=== PATIENT | female | born 1985 | race Caucasian/White ===

== ENCOUNTER 2018-07-17 21:17 | Inpatient (IN) | payer OTHER ==
[2018-07-17] MEDS ORDERED: MIDAZOLAM HCL 2 MG/2 ML INJ IV PRN (23:11)
[2018-07-17] MEDS ORDERED: PROMETHAZINE 25 MG/ML VIAL IV PRN (23:11)
[2018-07-17] MEDS ORDERED: Ringers Lactate 1,000 ML IV PRN (23:11)
[2018-07-17] MEDS ORDERED: MEPERIDINE HCL 25 MG/0.5 ML IV PRN (23:11)
[2018-07-17] MEDS ORDERED: CARBOPROST TROME 250 MCG/ML IM PRN (23:11)
[2018-07-17] MEDS ORDERED: METHYLERGONOVINE 0.2MG/ML AMP IM PRN (23:11)
[2018-07-17] MEDS ORDERED: PENICILLIN 5 MU in NA CHLORIDE 0.9% 100 ML IV ONE (23:11)
[2018-07-17] MEDS ORDERED: METHYLERGONOVINE 0.2MG/ML AMP IM ONE (23:23)
[2018-07-17] MEDS ORDERED: OXYTOCIN/LR 20 UNIT/1,000 ML BAG IV ONE (23:23)
[2018-07-17] MEDS ORDERED: Ringers Lactate 1,000 ML IV ONE (23:23)
[2018-07-17] MEDS ORDERED: CARBOPROST TROME 250 MCG/ML IM ONE (23:23)
[2018-07-17] MEDS ORDERED: LIDOCAINE 1% MPF 30 ML VIAL ONE (23:23)
[2018-07-17 23:44] LABS: RPR Titer ND
[2018-07-17] MEDS ORDERED: OXYTOCIN/LR 20 UNIT/1,000 ML BAG IV SCH (23:45)
[2018-07-17] MEDS ORDERED: Ringers Lactate 1,000 ML IV SCH (23:45)
[2018-07-17 23:50] LABS: Absolute Lymphocytes (CBC) 2.5 K/uL (0.7-4.9); Absolute Monocytes 0.7 K/uL (0.1-1.3); Absolute Neutrophil 5.8 K/uL (1.8-8.0); Basophils % 1.1 % (0-1.3); Eosinophils % 0.6 % (0-4.4); Hematocrit 34.6 % (36.0-45.0); Lymphocytes % 27.2 % (15.3-44.8); Monocytes % 7.5 % (3.3-12.3); RBC Red Blood Cell Count 4.09 M/uL (3.86-4.86)
[2018-07-17 23:52] LABS: Urine Appearance CLEAR; Urine Bilirubin NEGATIVE (NEG); Urine Blood 1+ (NEG); Urine Color YELLOW; Urine Glucose NEGATIVE (NEG); Urine Protein NEGATIVE (NEG); Urine Specific Gravity 1.015 (1.005-1.030); Urine Urobilinogen 0.2 mg/dL (0.2-1.0); Urine pH 7.5 (5.0-7.0)
[2018-07-17] MEDS ORDERED: MAGNESIUM SULF/STERILE WATER 1,000 ML IV ONE (23:58)
[2018-07-17] MEDS ORDERED: HYDRALAZINE HCL 20 MG/ML VIAL ONE (23:58)
[2018-07-17 23:59] LABS: Urine Microscopic Reflex ORDER UMIC
[2018-07-18 00:06] LABS: Barbiturates NEGATIVE (NEGATIVE); Cocaine NEGATIVE (NEGATIVE); Methadone NEGATIVE (NEGATIVE); Phencyclidine NEGATIVE (NEGATIVE); THC Cannibis NEGATIVE (NEGATIVE)
[2018-07-18 00:07] LABS: Benzodiazepines POSITIVE (NEGATIVE); METHAMPHETAM POSITIVE (NEGATIVE)
[2018-07-18 00:08] LABS: Opiates POSITIVE (NEGATIVE)
[2018-07-18] MEDS ORDERED: DOCUSATE NA/SENNA CONC 1 TAB PO PRN (00:26)
[2018-07-18] MEDS ORDERED: BISACODYL 10 MG RECTAL SUPP RECT PRN (00:26)
[2018-07-18] MEDS ORDERED: Oxycodone HCl/Acetaminophen 1 TAB TAB PO PRN ×2 (00:26)
[2018-07-18] MEDS ORDERED: DIPHENHYDRAMINE 25 MG TAB/CAP PO PRN (00:26)
[2018-07-18] MEDS ORDERED: IBUPROFEN 200 MG TAB PO ONE (00:51)
[2018-07-18] MEDS ORDERED: PHENOBARBITAL 32.4 MG TABLET PO SCH (01:00)
[2018-07-18] MEDS ORDERED: OXYTOCIN/LR 20 UNIT/1,000 ML BAG IV SCH (01:00)
[2018-07-18 02:12] LABS: Urine Bacteria 20-50 /HPF (<20); Urine Culture Reflex Order REFLEXED; Urine RBC <5 /HPF (NONE SEEN)
[2018-07-18 02:39] VITALS: BMI 23.3
[2018-07-18] MEDS ORDERED: IBUPROFEN 400 MG TAB PO PRN (02:48)
--- NOTE | 2018-07-18 06:36 | OP ---
Surgeon: Tian Estevez MD A 33-year-old 5, para 4, drop-in patient from [place], admits to Xanax use during the pregn tha. Urinary drug screen positive for benzodiazepines, positive for methamphetamines, positive for opiates. CPS will be notified. The patient was admitted. She complained of contractions, was noted to be 3.5 to 4 cm but did not seem to be in active labor according the nurses and after a period of observation, she was getting ready to be discharged. However patient complained of pain, she was isra cked, noted to be 6 cm. Obviously she was admitted at that point, IV was started. Blood pressures w ere elevated 176/100, a couple even little bit higher than that. A 5 mg of Apresoline was given IV. The patient states that her last she had pre-eclampsia even though it is her fourth pregnan cy. She was started on 4 g loading dose of magnesium sulfate, however, probably not more than a gram or so was administered. The patient delivered precipitously but controlled of a very small female, Apgars 9 and 9, very agitated type baby cry. We are getting the weight at this point but it looks to be 5 pounds or less. It is though crying quite well. No episiotomy. No lacerations. Gabriellee brandon gayle of the placenta, which was inspected. We will keep it for possible pathologic examination. Bl ood loss was about 300 to 350 cc. The patient tolerated all procedures well. We will give the patie nt either Motrin p.o. or Percocet as she says that tramadol causes seizures. She has no other drug a llergies that she relates. We will perform the rest of the drop-in lab. I have ordered the magnesiu m sulfate to be stopped as she says her arm and hand was burning where the IV was running and the mag nesium sulfate was going. She has had no signs of allergic reactions. We will put her on p.o. pheno barbital. She really has no reflex problems and she does not have edema. Urine was not available as it was sent down and the dipstick is not available. However, we will take precautionary measures si nce she does give the history of preeclampsia with her last . Final Diagnoses: Term intrauterine 37 weeks 5 days, according the patient's estimates. Pr ecipitous but controlled vaginal delivery. Positive urinary drug screen for benzodiazepines, methamphetamine and opiates. CPS will b e notified. ABDULLAHI/DENILSON Voice ID: [id number] Report ID: [id number]
--- NOTE | 2018-07-18 09:00 | PREOPHP ---
Date of Admission: 07/17/2018 33-year-old 5, para 4, comes in, from [place]. She states she has been here 2 w eeks but has not sought care. Gives a history that she had pre-eclampsia with her fourth pr nora. Says that she has been seen in [place], but not often and not recently. Came to our faci lity to be evaluated. That time, was not thought to be in labor by the nurses. She was 3.5 to 4 cm. During the period of observation; however, patient became very uncomfortable. Was checked, was not ed to be 6 cm. She was admitted and subsequently checked and within 8 and 9 cm. FHTs are normal. T he patient does have an elevated blood pressure of 176/100. She has no idea about her beta strep sta tus and she has agreed to receive penicillin. This is going right now. On initial exam, she is 8.5 to 9 cm, bulging membranes. Rupture of membranes, clear fluid. We will start Gleason catheter. Get h er urinary drug screen as patient admits to taking Xanax during her and we will see what el se should not have been taken. 4 g of magnesium sulfate has been ordered. Anticipate delivery relat ively soon. The patient states that she is allergic to tramadol and has seizures when she gets trama dol, but she has had Stadol in the past possibly 2 years ago or more and she has no problems. Howeve r, obviously we are little bit nervous about giving her any analgesic at this point. Family history according to patient is noncontributory. She has had an appendectomy but no other surgeries. She is all by herself so she has no one with her. This is all a very suspicious social situation. Nonethe less, she is imminently going to be delivered, and then we will let Dedicated Truck Driver get involved. ABDULLAHI/DENILSON Voice ID: [id number]
[2018-07-18 13:06] VITALS: BP 154/100; TEMP 99.7
[2018-07-18] MEDS ORDERED: PHENOBARBITAL 32.4 MG TABLET PO ONE ×3 (16:23→18:00)
--- NOTE | 2018-07-18 18:27 | DS ---
Date of Discharge: 07/18/2018 Hospital Course: A 33-year-old multiparous female, 5, para 4, supposedly at 37 weeks 5 days, but not a reliable historian. The patient came into our institution for labor assessment, was watch ed for 2-3 hours, and then was being prepared to be sent home, but then checked and noted she had jazmin e from 3-1/2 to 6 cm. Was admitted. Drug screen proved positive for benzodiazepine, opiates, and me thamphetamine. CPS will be notified. She also has noted to have elevated blood pressures. Was give n Apresoline 5 mg IV during the labor. Magnesium sulfate was started, but before it was completely f inished, patient precipitously delivered, a 4-pound 1-ounce male . Previously identified Ninfa delgado was female, but this is a male infant. Apgars 9 and 9. No episiotomy. No laceration. Schultze delivery of the placenta. Estimated blood loss 300-350 cc. The patient was also given 1 dose of pen icillin as she was not aware of her beta strep status. afebrile, ambulating and voiding. Lochia is normal. Blood pressures have moderated. She was started on phenobarbital, which will pro bably continue during the time she is here in the hospital, but I do not really think she has preecla mpsia, although she said she had pre-eclampsia with her last delivery. Her reflexes are normal. She has no swelling of any significance. We will observe the patient probably until tomorrow and then d epend upon what Pediatrics says, possibly dismiss the patient at that time. The patient has no obvio support system, nobody was with her during her labor and nobody has appeared yet. When asked she says she would probably will stay in this area, but may go back to [place]. She is Rh positive. S he says she has had her Tdap to the nurses this morning, though she says she does not remember if she had her Tdap immunization or not. Full post instructions given. Urine protein just became a vailable and was negative, so I definitely do not think the patient has preeclampsia and we will stop phenobarbital. I will not give her any opiates on dismissal as obviously she has a problem with mikal t. Final Diagnoses: Intrauterine gestation, 37 weeks 5 days, according to self-assessment on the patien t. Positive drug screen. Vaginal delivery. Tdap offered. CPS and other support services will be notified. ABDULLAHI/DENILSON Voice ID: [id number] Report ID: [id number]
--- NOTE | 2018-07-18 18:33 | DS ---
Date of Discharge: 07/18/2018 Hospital Course: Blood pressures are still somewhat elevated, even though we had stopped the phenoba rbital. The patient is now going to be dismissed after she talks with CPS because the baby is being transferred. Dr. Kent has made that decision. I think it is more prudent to keep the patient on phenobarbital for 2-3 days. She is to follow up with me in my office on Sunday. Whether or not she will do that remains to be seen. Final Diagnoses: Drop-in with minimal care, 37 weeks 5 days, best estimates. Three positiv e tests for on drug screen. Vaginal delivery, 4-pound 1-ounce male. Rh positive. HIV test negative . Follow up in my office. CPS involved. ABDULLAHI/DENILSON Voice ID: [id number] Report ID: [id number]
[2018-07-18 21:58] LABS: RPR (Rapid Plasma Reagin) NON-REACT (NON-REACT)
[2018-07-23 04:15] LABS: HBsAG Nonreactive (Nonreactive)
== END 2018-07-18 17:00 | disposition home or self-care (01) | DRG 807 ==
LOC: L&D 21:17 → 2ND-WC 23:09
PROVIDERS: ADMIT Specialist; ATTEND Specialist
PROC: 10E0XZZ Delivery of Products of Conception, External Approach (ICD-10-PCS; principal; 2018-07-18)
DX: O99.324 Drug use complicating childbirth (principal); Z37.0 Single live birth; F11.90 Opioid use, unspecified, uncomplicated; F15.90 Other stimulant use, unspecified, uncomplicated; F19.90 Other psychoactive substance use, unspecified, uncomplicated; Z3A.37 37 weeks gestation of pregnancy
CPT/HCPCS: 36415; 80307; 81003; 81015; 85025; 86592; 86850; 86900; 86901; 87077; 87086; 87088; 87186; 87340; 88307; 99218; G0433; J0360; J2175; J2210; J2590; J3475

== ENCOUNTER 2019-09-21 01:45 | Inpatient (IN) | payer OTHER ==
[2019-09-21] MEDS ORDERED: ACETAMINOPHEN 500 MG TAB ONE (02:39)
[2019-09-21 03:35] LABS: Urine Blood NEGATIVE (NEG); Urine Glucose NEGATIVE (NEG); Urine Protein NEGATIVE (NEG); Urine pH 8.5 (5.0-7.0)
[2019-09-21] MEDS ORDERED: FENTANYL CITR 100 MCG/2 ML ONE (04:34)
[2019-09-21] MEDS ORDERED: CEFTRIAXONE/SWI 1gm 2 GM/20 ML SYR ONE (04:34)
[2019-09-21] MEDS ORDERED: NA CHLORIDE 0.9% 2,000 ML ONE (04:34)
[2019-09-21] MEDS ORDERED: ONDANSETRON 4 MG/2 ML VIAL ONE (04:36)
--- NOTE | 2019-09-21 04:45 | ER ---
Nurse's Notes [facility] Name: Marcella Argueta Age: 34 yrs Sex: Female : 1985 Arrival Date: 09/21/2019 Time: 01:58 Bed 24 Private MD: Diagnosis: Fever, unspecified;Acute tubulo-interstitial nephritis;Weakness;Elevated white blood cell count;Anemia, unspecified;Hypokalemia Presentation: 09/20 02:24 Chief complaint: Patient states: Right kidney pain that began yesterday; States lp1 diagnosed with kidney infection about 2 weeks ago but did not finish antibiotics; States hx of kidney stones; States fever at home of 104, has not taken any medication. Coronavirus screen: Proceed with normal triage. Ebola Screen: No symptoms or risks identified at this time. Initial Sepsis Screen: Does the patient meet any 2 criteria? Temp <36.0*C (96.8*F)) or > 38.3*C (100.9*F). HR > 90 bpm. Yes Does the patient have a suspected source of infection? Yes: Other: unknown. Risk Assessment: Do you want to hurt yourself or someone else? Patient reports no desire to harm self or others. Onset of symptoms was September 21, 2019. 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 - Social history:: Smoking status: Patient denies any tobacco usage or history of. - Family history:: not pertinent. Screenin:28 Abuse screen: Denies threats or abuse. Denies injuries from another. Nutritional lp1 screening: No deficits noted. Tuberculosis screening: No symptoms or risk factors identified. Fall Risk None identified. Assessment: 03:00 General: Appears in no apparent distress. uncomfortable, Behavior is calm, cooperative, vc appropriate for age. Pain: Complains of pain in left mid back and right low back and right mid back. Neuro: Level of Consciousness is awake, alert, obeys commands. Cardiovascular: Capillary refill < 3 seconds Patient's skin is warm and dry. Respiratory: Respiratory effort is even, unlabored, Respiratory pattern is regular, symmetrical. : Urine is clear, Reports pain flank(s). Derm: burn to right lower medial calf. 04:00 Reassessment: Patient appears in no apparent distress at this time. Patient and/or vc family updated on plan of care and expected duration. Pain level reassessed. Patient is alert, oriented x 3, equal unlabored respirations, skin warm/dry/pink. 05:43 Reassessment: Patient appears in no apparent distress at this time. Patient aware of lp1 admission and ER Hold status. 05:47 Reassessment: Dr. Slaughter at bedside to discuss care with patient. lp1 Vital Signs: 02:24 BP 120 / 76; Pulse 133; Resp 18; Temp 103.2(O); Pulse Ox 100% on R/A; Weight 61.23 kg lp1 (R); Height 5 ft. 5 in. (165.10 cm); Pain 9/10; 05:42 BP 103 / 60; Pulse 99; Resp 18; Temp 98.9(O); Pulse Ox 99% on R/A; lp1 02:24 Body Mass Index 22.46 (61.23 kg, 165.10 cm) lp1 ED Course: 01:58 Patient arrived in ED. cl3 02:06 Earl Granda MD is Attending Physician. luis 02:27 Triage completed. lp1 02:27 Arm band placed on. lp1 03:04 Aviva Anton RN is Primary Nurse. vc 03:37 CT Stone Protocol In Process Unspecified. EDMS 03:54 Chest Single View XRAY In Process Unspecified. EDMS 04:41 Tawanda Slaughter MD is Hospitalizing Provider. [facility] 05:00 Report received from MAIRA Chicas. lp1 05:29 Patient has correct armband on for positive identification. lp1 05:29 No provider procedures requiring assistance completed. Patient admitted, IV remains in lp1 place. 20g IV to left FA intact. Administered Medications: 02:32 Drug: Tylenol 1000 mg Route: PO; lp1 04:30 Drug: NS 0.9% 1000 ml Route: IV; Rate: 1 bolus; Site: left forearm; vc 04:30 Drug: NS 0.9% 1000 ml Route: IV; Rate: 1 bolus; Site: left forearm; vc 04:30 Drug: Rocephin 2 grams Route: IV; Rate: per protocol; Site: left forearm; vc 04:30 Drug: fentaNYL (PF) 25 mcg Route: IVP; Site: left forearm; vc 04:30 Drug: Zofran (Ondansetron) 4 mg Route: IVP; Site: left forearm; vc Outcome: 04:44 Decision to Hospitalize by Provider. luis 05:29 Condition: stable lp1 05:29 Instructed on the need for admit. 07:27 Admitted to ER Hold. Please see [facility] for further documentation. lp1 14:28 Patient left the ED. hb Signatures: Dispatcher [employer] Earl Ruvalcaba MD MD cha Pena, Laura, RN RN lp1 Radha Gomez RN RN hb Lewis, Charde cl3 Aviva Anton RN RN vc
--- NOTE | 2019-09-21 04:45 | EDPHYS ---
Physician Documentation [facility] Name: Marcella Argueta Age: 34 yrs Sex: Female : 1985 Arrival Date: 09/21/2019 Time: 01:58 Bed 24 Private MD: Earl Ralph HPI: 09/20 02:59 This 34 yrs old Female presents to ER via Ambulatory with complaints of luis Kidney Pain. 02:59 The patient presents with abdominal pain in the upper abdomen, in the lower abdomen. luis Onset: The symptoms/episode began/occurred 3 day(s) ago. The patient complains of pain in the right mid back and right low back. The pain does not radiate. Onset: The symptoms/episode began/occurred 3 day(s) ago. Modifying factors: The symptoms are alleviated by nothing. the symptoms are aggravated by nothing. The symptoms do not radiate. Associated signs and symptoms: Pertinent positives: dysuria, fever, urinary frequency, nausea. Modifying factors: The symptoms are alleviated by remaining still, the symptoms are aggravated by jumping, movement, pressure, walking. 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 - Social history:: Smoking status: Patient denies any tobacco usage or history of. - Family history:: not pertinent. ROS: 02:59 Constitutional: Negative for fever, chills, and weight loss, Eyes: Negative for injury, luis pain, redness, and discharge, ENT: Negative for injury, pain, and discharge, Neck: Negative for injury, pain, and swelling, Respiratory: Negative for shortness of breath, cough, wheezing, and pleuritic chest pain, : Negative for injury, bleeding, discharge, and swelling, MS/Extremity: Negative for injury and deformity, Skin: Negative for injury, rash, and discoloration, Neuro: Negative for headache, weakness, numbness, tingling, and seizure. 02:59 Constitutional: Positive for fatigue, fever, malaise. 02:59 Cardiovascular: Positive for palpitations. 02:59 Abdomen/GI: Positive for abdominal pain, nausea and vomiting. 02:59 Back: Positive for flank pain, bilaterally. Exam: 03:03 Head/Face: Normocephalic, atraumatic. Eyes: Pupils equal round and reactive to light, luis extra-ocular motions intact. Lids and lashes normal. Conjunctiva and sclera are non-icteric and not injected. Cornea within normal limits. Periorbital areas with no swelling, redness, or edema. ENT: Nares patent. No nasal discharge, no septal abnormalities noted. Tympanic membranes are normal and external auditory canals are clear. Oropharynx with no redness, swelling, or masses, exudates, or evidence of obstruction, uvula midline. Mucous membranes moist. Neck: Trachea midline, no thyromegaly or masses palpated, and no cervical lymphadenopathy. Supple, full range of motion without nuchal rigidity, or vertebral point tenderness. No Meningismus. Chest/axilla: Normal chest wall appearance and motion. Nontender with no deformity. No lesions are appreciated. Respiratory: Lungs have equal breath sounds bilaterally, clear to auscultation and percussion. No rales, rhonchi or wheezes noted. No increased work of breathing, no retractions or nasal flaring. Skin: Warm, dry with normal turgor. Normal color with no rashes, no lesions, and no evidence of cellulitis. MS/ Extremity: Pulses equal, no cyanosis. Neurovascular intact. Full, normal range of motion. Neuro: Awake and alert, GCS 15, oriented to person, place, time, and situation. Cranial nerves II-XII grossly intact. Motor strength 5/5 in all extremities. Sensory grossly intact. Cerebellar exam normal. Normal gait. 03:03 Constitutional: The patient appears febrile. 03:03 Cardiovascular: Rate: tachycardic, Rhythm: regular, Pulses: Pulses are 4+ in bilateral radial, brachial, femoral, popliteal, posterior tibial and and dorsalis pedis arteries.. Heart sounds: normal, Edema: is not appreciated, JVD: is not appreciated. 03:03 Back: pain, that is mild, that is moderate, of the left mid back and right mid back, ROM is normal, normal spinal alignment noted, CVA tenderness, that is moderate, is noted bilaterally, muscle spasm, is not present. Vital Signs: 02:24 BP 120 / 76; Pulse 133; Resp 18; Temp 103.2(O); Pulse Ox 100% on R/A; Weight 61.23 kg lp1 (R); Height 5 ft. 5 in. (165.10 cm); Pain 9/10; 05:42 BP 103 / 60; Pulse 99; Resp 18; Temp 98.9(O); Pulse Ox 99% on R/A; lp1 02:24 Body Mass Index 22.46 (61.23 kg, 165.10 cm) lp1 MDM: 02:31 Patient medically screened. luis 03:04 Differential diagnosis: nephrolithiasis, pyelonephritis, UTI, diverticulitis, ruptured luis AAA, viral Infection, bacterial infection, gastroenteritis, cholecystitis, Cholelithiasis, gastritis. Data reviewed: vital signs, nurses notes, lab test result(s), radiologic studies, CT scan, plain films. 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 Test interpretation: by ED physician or midlevel provider:. Counseling: I had a detailed discussion with the patient and/or guardian regarding: the historical points, exam findings, and any diagnostic results supporting the discharge/admit diagnosis, lab results, radiology results, the need for further work-up and treatment in the hospital. 04:39 Medication response: Zofran partially relieved the patient's nausea. Response to luis treatment: the patient's symptoms have markedly improved after treatment. ED course: right flank pain, high fever , ct stone no stone, mild right perinephric stranding, wall of right ureter thickened. 09/20 02:55 Order name: Basic Metabolic Panel; Complete Time: 05:12 [facility] 09/20 02:55 Order name: CBC with Diff [facility] 09/20 02:55 Order name: Hepatic Function; Complete Time: 05:12 [facility] 09/20 02:55 Order name: Lipase; Complete Time: 05:12 [facility] 09/20 02:55 Order name: Urine Culture [facility] 09/20 02:56 Order name: Lactate; Complete Time: 05:12 [facility] 09/20 02:56 Order name: Procalcitonin [facility] 09/20 02:56 Order name: Blood Culture Adult (2) [facility] 09/20 03:20 Order name: Urine Dipstick--Ancillary (enter results) [place] 09/20 03:20 Order name: Urine --Ancillary (enter results); Complete Time: 03:41 [place] 09/20 05:39 Order name: Manual Differential EDTN 09/20 06:49 Order name: Urinalysis EDTN 09/20 06:49 Order name: CBC with Automated Diff EDMS 09/20 06:49 Order name: CBC with Automated Diff EDMS 09/20 02:56 Order name: CT Stone Protocol [facility] 09/20 03:05 Order name: Chest Single View XRAY [facility] 09/20 06:49 Order name: Comprehensive Metabolic Panel EDMS 09/20 06:49 Order name: Comprehensive Metabolic Panel EDMS 09/20 06:49 Order name: Lactate EDMS 09/20 06:49 Order name: Lactate EDMS 09/20 06:49 Order name: Magnesium EDMS 09/20 06:49 Order name: Magnesium EDMS 09/20 06:49 Order name: Phosphorus EDMS 09/20 06:49 Order name: Phosphorus EDMS 09/20 06:49 Order name: Procalcitonin EDTN 09/20 06:49 Order name: Procalcitonin EDMS 09/20 06:49 Order name: Protime (+INR) EDMS 09/20 06:49 Order name: Protime (+INR) EDMS 09/20 06:49 Order name: PTT, Activated Partial Thromb EDMS 09/20 06:49 Order name: PTT, Activated Partial Thromb EDTN 09/20 02:55 Order name: IV Saline Lock; Complete Time: 04:56 [facility] 09/20 02:55 Order name: Labs collected and sent; Complete Time: 04:56 [facility] 09/20 02:55 Order name: Urine Dipstick-Ancillary (obtain specimen); Complete Time: 04:56 [facility] 09/20 02:55 Order name: Urine Test (obtain specimen); Complete Time: 04:56 [facility] 09/20 06:49 Order name: NPO EDMS Administered Medications: 02:32 Drug: Tylenol 1000 mg Route: PO; lp1 04:30 Drug: NS 0.9% 1000 ml Route: IV; Rate: 1 bolus; Site: left forearm; vc 04:30 Drug: NS 0.9% 1000 ml Route: IV; Rate: 1 bolus; Site: left forearm; vc 04:30 Drug: Rocephin 2 grams Route: IV; Rate: per protocol; Site: left forearm; vc 04:30 Drug: fentaNYL (PF) 25 mcg Route: IVP; Site: left forearm; vc 04:30 Drug: Zofran (Ondansetron) 4 mg Route: IVP; Site: left forearm; vc Disposition: 09/21/19 04:44 Hospitalization ordered by Tawanda Slaughter for Inpatient Admission. Preliminary diagnosis are Fever, unspecified, Acute tubulo-interstitial nephritis, Weakness, Elevated white blood cell count, Anemia, unspecified, Hypokalemia. - Bed requested for Telemetry/MedSurg (Inpatient). - Status is Inpatient Admission. hb - Condition is Fair. - Problem is new. - Symptoms have improved. Signatures: Dispatcher [employer] EDMS Maryam Lyman RN RN mw Woody, Diana, RN RN dw Anderson, Corey, MD MD cha Pena, Laura, RN RN lp1 Radha Gomez RN RN hb Calcote, Vanessa RN RN vc Corrections: (The following items were deleted from the chart) 04:57 04:44 Hospitalization Ordered by Tawanda Slaughter MD for Inpatient Admission. Preliminary diagnosis is Fever, unspecified; Acute tubulo-interstitial nephritis; Weakness. Bed requested for Telemetry/MedSurg (Inpatient). Status is Inpatient Admission. Condition is Fair. Problem is new. Symptoms have improved. [facility] 05:14 04:57 09/21/2019 04:44 Hospitalization Ordered by Tawanda Slaughter MD for Inpatient [facility] Admission. Preliminary diagnosis is Fever, unspecified; Acute tubulo-interstitial nephritis; Weakness. Bed requested for [facility] ER HOLD. Status is Inpatient Admission. Condition is Fair. Problem is new. Symptoms have improved. 12:54 05:14 09/21/2019 04:44 Hospitalization Ordered by Tawanda Slaughter MD for Inpatient Admission. Preliminary diagnosis is Fever, unspecified; Acute tubulo-interstitial nephritis; Weakness; Elevated white blood cell count; Anemia, unspecified; Hypokalemia. Bed requested for [facility] ER HOLD. Status is Inpatient Admission. Condition is Fair. Problem is new. Symptoms have improved. [facility] 12:54 12:54 09/21/2019 04:44 Hospitalization Ordered by Tawanda Slaughter MD for Inpatient Admission. Preliminary diagnosis is Fever, unspecified; Acute tubulo-interstitial nephritis; Weakness; Elevated white blood cell count; Anemia, unspecified; Hypokalemia. Bed requested for Telemetry/MedSurg (Inpatient). Status is Inpatient Admission. Condition is Fair. Problem is new. Symptoms have improved. heidi 14:28 12:54 09/21/2019 04:44 Hospitalization Ordered by Tawanda Slaughter MD for Inpatient hb Admission. Preliminary diagnosis is Fever, unspecified; Acute tubulo-interstitial nephritis; Weakness; Elevated white blood cell count; Anemia, unspecified; Hypokalemia. Bed requested for Telemetry/MedSurg (Inpatient). Status is Inpatient Admission. Condition is Fair. Problem is new. Symptoms have improved. dw
[2019-09-21 04:49] LABS: Absolute Lymphocytes (CBC) 1.8 K/uL (0.7-4.9); Basophils % 0.5 % (0-1.3); Hematocrit 30.3 % (36.0-45.0); Lymphocytes % 8.2 % (15.3-44.8); MPV 7.2 fL (7.6-11.3); RBC Red Blood Cell Count 3.66 M/uL (3.86-4.86)
[2019-09-21 05:09] LABS: ALT/SGPT 14 U/L (12-78); AST/SGOT 10 U/L (15-37); Albumin 2.8 g/dL (3.4-5.0); Alkaline Phosphatase 93 U/L (45-117); BUN Blood Urea Nitrogen 13 mg/dL (7-18); Bicarbonate 24 mmol/L (21-32); Bilirubin Direct < 0.1 mg/dL (0-0.2); Bilirubin Total 0.2 mg/dL (0.2-1.0); Glucose Level 104 mg/dL (74-106); Lipase 81 U/L (73-393); Potassium 3.3 mmol/L (3.5-5.1); Protein, Total 6.9 g/dL (6.4-8.2); Sodium Level 136 mmol/L (136-145)
[2019-09-21 05:39] LABS: Blood Morphology Comment NOT SEEN (NOT SEEN); Platelet Estimate INCR
[2019-09-21] MEDS ORDERED: POTASSIUM 25 MEQ EFFERV TAB ONE (05:39)
[2019-09-21] MEDS ORDERED: ACETAMINOPHEN 500 MG TAB PO PRN (06:45)
[2019-09-21] MEDS ORDERED: ONDANSETRON 4 MG/2 ML VIAL IV PRN (06:45)
[2019-09-21] MEDS ORDERED: ALPRAZOLAM 0.25 MG TABLET PO PRN (06:45)
[2019-09-21] MEDS: NA CHLORIDE 0.9% 1,000 ML IV SCH ×2 (07:00→20:19)
--- NOTE | 2019-09-21 08:20 | P.HP ---
Certification for Inpatient Patient admitted to: Inpatient With expected LOS: >2 Midnights Patient will require the following post-hospital care: None Practitioner: I am a practitioner with admitting privileges, knowledge of patient current condition, hospital course, and medical plan of care. Services: Services provided to patient in accordance with Admission requirements found in Title 42 Section 412.3 of the Code of Federal Regulations Patient History Date of Service: 09/21/19 Reason for admission: Pyelonephritis History of Present Illness: Patient is a 34-year-old female who comes into the emergency room with a temp of a 103.8. Patient has been having some flank tenderness. Patient came into the emergency room for further evaluation. In the emergency room patient was found have pyelonephritis. Cultures are pending at this time. Patient denies a history of UTI. Patient is lethargic, and patient just got pain medication. She keeps falling asleep during our conversation. She tells me she still having some tenderness but feels a little bit better since getting IV fluids and antibiotics in the ER. She will be admitted to the hospital for further evaluation. Allergies tramadol Allergy (Verified 07/18/18 01:46) Shortness of breath Home medications list reviewed: Yes Home Medications: NK [No Home Meds] 07/18/18 - Past Medical/Surgical History Diabetic: No -: Hx: preeclampsia and gestational diabetes with all pregnancies -: x4 -: Appendectomy 2010 - Family History Father Family History: Reviewed- Non-Contributory - Social History Smoking Status: Unknown if ever smoked Alcohol use: No CD- Drugs: No Caffeine use: No Review of Systems 10-point ROS is otherwise unremarkable Physical Examination - Vital Signs Temperature: 98 F Blood Pressure: 120/70 Pulse: 88 Respirations: 18 Pulse Ox (%): 96 - Physical Exam General: Alert, In no apparent distress, Oriented x3 HEENT: Atraumatic, PERRLA, Mucous membr. moist/pink, EOMI, Sclerae nonicteric Neck: Supple, 2+ carotid pulse no bruit, No LAD, Without JVD or thyroid abnormality Respiratory: Clear to auscultation bilaterally, Normal air movement Cardiovascular: Regular rate/rhythm, Normal S1 S2, No murmurs Gastrointestinal: Normal bowel sounds, Soft and benign, Non-distended, Tenderness (Flank tenderness) Musculoskeletal: No clubbing, No swelling, No tenderness Integumentary: No rashes Neurological: Normal gait, Normal speech, Normal strength at 5/5 x4 extr, Normal tone, Sensation intact, Cranial nerves 3-12 intact, Normal affect Lymphatics: No axilla or inguinal lymphadenopathy - Studies Laboratory Data (last 24 hrs) 09/21/19 04:14: WBC 22.0 H*, Hgb 9.6 L, Hct 30.3 L, Plt Count 437 H 09/21/19 04:14: Sodium 136, Potassium 3.3 L, BUN 13, Creatinine 0.69, Glucose 104, Total Bilirubin 0.2, AST 10 L, ALT 14, Alkaline Phosphatase 93, Lipase 81 Assessment & Plan - Problems (Diagnosis) (1) Pyelonephritis Current Visit: Yes Status: Acute - Plan 1. Continue with IV hydration 2. Continue with IV antibiotics 3. Continue with pain control 4. NPO 5. Monitor labs closely 6. Await urine culture results 7. GI and DVT prophylaxis Discharge Plan: Home Plan to discharge in: Greater than 2 days - Advance Directives Does patient have a Living Will: No Does patient have a Durable POA for Healthcare: No - Code Status/Comfort Care Code Status Assessed: Yes Code Status: Full Code Critical Care: No Time Spent Managing PTS Care (In Minutes): 40
[2019-09-21] MEDS ORDERED: ENOXAPARIN 40 MG/0.4 ML SQ ONE (08:43)
[2019-09-21] MEDS: ENOXAPARIN 40 MG/0.4 ML SQ SCH (08:43)
[2019-09-21] MEDS ORDERED: NA CHLORIDE 0.9% 1,000 ML ONE (08:43)
[2019-09-21] MEDS ORDERED: TRAMADOL HCL 50 MG TAB PO PRN (09:28)
[2019-09-21] MEDS ORDERED: HYDROCODONE/APAP 7.5/325 MG TAB ONE (10:30)
[2019-09-21] MEDS: HYDROCODONE/APAP 7.5/325 MG TAB PO PRN ×2 (10:36→16:03)
--- NOTE | 2019-09-21 11:36 | RAD REPORT ---
EXAM DESCRIPTION: RAD - Chest Single View - 09/21/2019 3:53 am CLINICAL HISTORY: Abdominal distention;Fever;Pain COMPARISON: April 2015 TECHNIQUE: AP portable chest image was obtained 09/21/2019 3:53 am . FINDINGS: Lungs are clear. Heart and vasculature are normal. No measurable pleural effusion and no p neumothorax. No acute bony abnormality seen. No acute aortic findings suspected. IMPRESSION: No acute cardiopulmonary process. No suspicious change from comparison.
[2019-09-21 13:33] VITALS: BMI 22.4
--- NOTE | 2019-09-21 19:30 | RAD REPORT ---
EXAM DESCRIPTION: CT - Stone Protocol - 09/21/2019 6:53 am CLINICAL HISTORY: The patient is 34 years old and is Female; Abd pain;Fever;Flank pain TECHNIQUE: Axial computed tomography images of the abdomen and pelvis without intravenous contrast. Sagittal and coronal reformatted images were created and reviewed. This CT exam was performed usi ng one or more of the following dose reduction techniques: automated exposure control, adjustment o f the mA and/or kV according to patient size, and/or use of iterative reconstruction technique. COMPARISON: No relevant prior studies available. FINDINGS: Lung bases: Unremarkable. No mass. No consolidation. ABDOMEN: Liver: Incompletely evaluated hypodense lesion in the inferior right hepatic lobe, 1.9 cm. Gallbladder and bile ducts: Unremarkable. No calcified stones. No ductal dilation. Pancreas: Unremarkable. No ductal dilation. Spleen: Unremarkable. No splenomegaly. Adrenals: Unremarkable. No mass. Kidneys and ureters: Mild right perinephric stranding with mild thickening of the mcdonnell of the pr oximal right ureter. No hydronephrosis or ureter stone visualized. Punctate right nephrolithiasis. Stomach and bowel: Moderate gas in the sigmoid colon. No bowel wall thickening. No small bowel d ilatation or obstruction. No gastric wall thickening. PELVIS: Appendix: Left kidney is unremarkable. Appendectomy. Bladder: Unremarkable. No stones. Reproductive: Unremarkable as visualized. ABDOMEN and PELVIS: Intraperitoneal space: Unremarkable. No free air. No significant fluid collection. Bones/joints: Degenerative changes in the pubic symphysis. Mild scoliosis versus positioning artifact. No acute fracture visualized. No dislocation. Soft tissues: Unremarkable. Vasculature: Unremarkable. No abdominal aortic aneurysm. Lymph nodes: No pathologically enlarged lymph nodes. IMPRESSION: 1. Mild right perinephric stranding with thickening of the mcdonnell of the proximal right ureter. No hy dronephrosis or ureter stone visualized. Correlate clinically for infection/UTI. 2. Punctate right nephrolithiasis. 3. Incompletely evaluated hypodense lesion in the inferior right hepatic lobe, 1.9 cm. Ultrasound m ay be of further utility. Electronically signed by: Vivi Pineda MD 09/21/2019 4:13 AM CDT Due to temporary technical issues with the PACS/Fluency reporting system, reports are being signed by the in house radiologist as a courtesy to ensure prompt reporting. The interpreting radiologist is f ully responsible for the content of the report.
[2019-09-21] MEDS: CEFTRIAXONE/SWI 1gm 1 GM/10 ML SYR IVP SCH (20:19)
[2019-09-21] MEDS: HYDROMORPHONE HCL 1 MG/ML INJ IV PRN (21:25)
[2019-09-22] MEDS: HYDROCODONE/APAP 7.5/325 MG TAB PO PRN (02:35)
[2019-09-22] MEDS ORDERED: METOPROLOL TARTRATE 5 MG/5 ML INJ IV STA (04:08)
[2019-09-22] MEDS ORDERED: NA CHLORIDE 0.9% 500 ML IV ONE ×2 (04:08→04:55)
--- NOTE | 2019-09-22 04:23 | P.PN ---
Subjective Date of Service: 09/22/19 Subjective: Improving Patient still tachycardic. Patient will be given IV fluids boluses and will do a urine drug screen as she has a history of substance abuse. Continue with IV antibiotic therapy. We will monitor the hemodynamics closely Review of Systems 10-point ROS is otherwise unremarkable Physical Examination - Vital Signs Temperature: 99.6 F Blood Pressure: 125/68 Pulse: 131 Respirations: 16 Pulse Ox (%): 100 - Physical Exam General: Alert, In no apparent distress, Oriented x3 Respiratory: Clear to auscultation bilaterally, Normal air movement Cardiovascular: Regular rate/rhythm, Normal S1 S2, No murmurs, Other (Patient is tachycardic ) Gastrointestinal: Normal bowel sounds, Soft and benign, Non-distended, No masses, No rebound, No guarding, Tenderness (Still with some flank tenderness) Musculoskeletal: No clubbing, No swelling, No tenderness Neurological: Normal tone, Sensation intact, Cranial nerves 3-12 intact - Studies Laboratory Data (last 24 hrs) 09/21/19 04:14: WBC 22.0 H*, Hgb 9.6 L, Hct 30.3 L, Plt Count 437 H 09/21/19 04:14: Sodium 136, Potassium 3.3 L, BUN 13, Creatinine 0.69, Glucose 104, Total Bilirubin 0.2, AST 10 L, ALT 14, Alkaline Phosphatase 93, Lipase 81 Medications List Reviewed: Yes Assessment & Plan - Problems (Diagnosis) (1) Pyelonephritis Current Visit: Yes Status: Acute (2) Tachyarrhythmia Current Visit: Yes Status: Acute (3) Polysubstance abuse Current Visit: Yes Status: Acute - Plan Continue with current plan of care as mentioned below 1. Continue with IV hydration; will give IV fluid boluses; monitor her cardiac status closely-heart rate has been elevated. 2. Continue with IV antibiotics 3. Continue with pain control 4. Start clear liquid diet and advance as tolerated 5. Monitor labs closely 6. Await urine culture results 7. Advised patient to get out of bed and ambulate a little bit. Anticipate discharge over the next 24-48 hours. 8. GI and DVT prophylaxis Discharge Plan: Home Plan to discharge in: Greater than 2 days - Advance Directives Does patient have a Living Will: No Does patient have a Durable POA for Healthcare: No - Code Status/Comfort Care Code Status: Full Code Critical Care: No Time Spent Managing PTS Care (In Minutes): 30
[2019-09-22 05:39] LABS: Urine Appearance CLEAR; Urine Bilirubin NEGATIVE (NEG); Urine Blood NEGATIVE (NEG); Urine Color YELLOW; Urine Glucose NEGATIVE (NEG); Urine Protein NEGATIVE (NEG); Urine Specific Gravity <=1.005 (1.005-1.030); Urine Urobilinogen 0.2 mg/dL (0.2-1.0); Urine pH 6.5 (5.0-7.0)
[2019-09-22 05:41] LABS: Urine Microscopic Reflex NO UMIC
[2019-09-22 05:48] LABS: Barbiturates NEGATIVE (NEGATIVE); Benzodiazepines POSITIVE (NEGATIVE); Cocaine NEGATIVE (NEGATIVE); METHAMPHETAM POSITIVE (NEGATIVE); Methadone NEGATIVE (NEGATIVE); Opiates NEGATIVE (NEGATIVE); Phencyclidine NEGATIVE (NEGATIVE); THC Cannibis NEGATIVE (NEGATIVE)
[2019-09-22 06:10] LABS: Protime INR 1.15
[2019-09-22 06:20] LABS: Absolute Lymphocytes (CBC) 2.8 K/uL (0.7-4.9); Basophils % 0.8 % (0-1.3); Hematocrit 29.5 % (36.0-45.0); Lymphocytes % 18.8 % (15.3-44.8); MPV 7.6 fL (7.6-11.3); RBC Red Blood Cell Count 3.58 M/uL (3.86-4.86)
[2019-09-22 06:21] LABS: ALT/SGPT 12 U/L (12-78); AST/SGOT 8 U/L (15-37); Alkaline Phosphatase 86 U/L (45-117); BUN Blood Urea Nitrogen 6 mg/dL (7-18); Bicarbonate 26 mmol/L (21-32); Glucose Level 114 mg/dL (74-106); Magnesium 1.9 mg/dL (1.8-2.4); Phosphorus 2.2 mg/dL (2.5-4.9); Potassium 3.5 mmol/L (3.5-5.1); Protein, Total 5.5 g/dL (6.4-8.2); Sodium Level 142 mmol/L (136-145)
[2019-09-22 06:23] LABS: Bilirubin Total < 0.1 mg/dL (0.2-1.0)
[2019-09-22] MEDS: NA CHLORIDE 0.9% 1,000 ML IV SCH (06:46)
[2019-09-22] MEDS: POTASS/SODIUM PHOSPHATE 1 PKT POWD.PACK PO SCH ×3 (08:57→10:37)
[2019-09-22] MEDS: CEFTRIAXONE/SWI 1gm 1 GM/10 ML SYR IVP SCH ×2 (08:58→22:26)
[2019-09-22] MEDS: ENOXAPARIN 40 MG/0.4 ML SQ SCH (08:58)
[2019-09-22] MEDS ORDERED: POTASSIUM CL SA 10 MEQ TAB PO ONE (09:00)
[2019-09-22] MEDS: HYDROMORPHONE HCL 1 MG/ML INJ IV PRN ×3 (09:03→23:02)
[2019-09-22] MEDS ORDERED: HYDROCORTISONE SUC 100 MG INJ IV ONE (11:28)
[2019-09-22] MEDS: MUPIROCIN 2% OINT 22GM TUBE TOP SCH (22:27)
[2019-09-23] MEDS: HYDROCODONE/APAP 7.5/325 MG TAB PO PRN ×3 (02:44→20:43)
[2019-09-23 04:24] LABS: BUN Blood Urea Nitrogen 8 mg/dL (7-18); Bicarbonate 29 mmol/L (21-32); Glucose Level 110 mg/dL (74-106); Phosphorus 2.6 mg/dL (2.5-4.9); Potassium 3.4 mmol/L (3.5-5.1); Sodium Level 140 mmol/L (136-145)
[2019-09-23] MEDS ORDERED: POTASSIUM 25 MEQ EFFERV TAB PO ONE (04:39)
[2019-09-23] MEDS: HYDROMORPHONE HCL 1 MG/ML INJ IV PRN ×3 (05:14→18:42)
[2019-09-23] MEDS: CEFTRIAXONE/SWI 1gm 1 GM/10 ML SYR IVP SCH ×2 (08:46→20:27)
[2019-09-23] MEDS: ENOXAPARIN 40 MG/0.4 ML SQ SCH (08:48)
[2019-09-23] MEDS: MUPIROCIN 2% OINT 22GM TUBE TOP SCH ×2 (08:49→20:30)
[2019-09-23] MEDS: NA CHLORIDE 0.9% 1,000 ML IV SCH ×2 (12:20→22:41)
--- NOTE | 2019-09-23 13:10 | P.PN ---
Subjective Date of Service: 09/23/19 Chief Complaint: Pyelonephritis Subjective: No new changes, Improving Review of Systems 10-point ROS is otherwise unremarkable Physical Examination - Vital Signs Temperature: 98.1 F Blood Pressure: 113/82 Pulse: 115 Respirations: 20 Pulse Ox (%): 98 - Physical Exam General: Alert, In no apparent distress HEENT: Atraumatic, Normocephalic Neck: Supple, 2+ carotid pulse no bruit Respiratory: Clear to auscultation bilaterally, Normal air movement Cardiovascular: No edema, Regular rate/rhythm, Normal S1 S2 Capillary refill: <2 Seconds Gastrointestinal: Soft and benign, W/out hepatosplenomegaly, Tenderness Musculoskeletal: No clubbing, No swelling Integumentary: No rashes, No breakdown Neurological: Normal speech, Normal strength at 5/5 x4 extr Lymphatics: No axilla or inguinal lymphadenopathy Rectal: Deferred - Studies Laboratory Last Values WBC 22.0 K/uL (4.3-10.9) H* 09/21/19 04:14 RBC 3.66 M/uL (3.86-4.86) L 09/21/19 04:14 Hgb 9.6 g/dL (12.0-15.0) L 09/21/19 04:14 Hct 30.3 % (36.0-45.0) L 09/21/19 04:14 MCV 82.7 fL (80-100) 09/21/19 04:14 MCH 26.3 pg (27.0-35.0) L 09/21/19 04:14 MCHC 31.8 g/dL (32.0-36.0) L 09/21/19 04:14 RDW 14.4 % (12.1-15.2) 09/21/19 04:14 Plt Count 437 K/uL (152-406) H 09/21/19 04:14 MPV 7.2 fL (7.6-11.3) L 09/21/19 04:14 Neutrophils % 83.6 % (41.7-73.7) H 09/21/19 04:14 Lymphocytes % 8.2 % (15.3-44.8) L 09/21/19 04:14 Monocytes % 7.7 % (3.3-12.3) 09/21/19 04:14 Eosinophils % 0.0 % (0-4.4) 09/21/19 04:14 Basophils % 0.5 % (0-1.3) 09/21/19 04:14 Absolute Neutrophils 18.4 K/uL (1.8-8.0) H 09/21/19 04:14 Segmented Neutrophils 82 % (40-80) H 09/21/19 04:14 Band Neutrophils 6 % (0-1) H 09/21/19 04:14 Absolute Lymphocytes 1.8 K/uL (0.7-4.9) 09/21/19 04:14 Lymphocytes 6 % (15-42) L 09/21/19 04:14 Monocytes 6 % (0-10) 09/21/19 04:14 Absolute Monocytes 1.7 K/uL (0.1-1.3) H 09/21/19 04:14 Absolute Eosinophils 0.0 K/uL (0-0.5) 09/21/19 04:14 Absolute Basophils 0.1 K/uL (0-0.5) 09/21/19 04:14 Morphology Comment Not seen (NOT SEEN) 09/21/19 04:14 Sodium 136 mmol/L (136-145) 09/21/19 04:14 Potassium 3.3 mmol/L (3.5-5.1) L 09/21/19 04:14 Chloride 103 mmol/L (98-107) 09/21/19 04:14 Carbon Dioxide 24 mmol/L (21-32) 09/21/19 04:14 BUN 13 mg/dL (7-18) 09/21/19 04:14 Creatinine 0.69 mg/dL (0.55-1.3) 09/21/19 04:14 Estimated GFR > 90 mL/min (=/>90) 09/21/19 04:14 Glucose 104 mg/dL (74-106) 09/21/19 04:14 Lactic Acid 0.8 mmol/L (0.4-2.0) 09/21/19 04:14 Calcium 8.1 mg/dL (8.5-10.1) L 09/21/19 04:14 Total Bilirubin 0.2 mg/dL (0.2-1.0) 09/21/19 04:14 Direct Bilirubin < 0.1 mg/dL (0-0.2) 09/21/19 04:14 AST 10 U/L (15-37) L 09/21/19 04:14 ALT 14 U/L (12-78) 09/21/19 04:14 Alkaline Phosphatase 93 U/L (45-117) 09/21/19 04:14 Serum Total Protein 6.9 g/dL (6.4-8.2) 09/21/19 04:14 Albumin 2.8 g/dL (3.4-5.0) L 09/21/19 04:14 Globulin 4.1 g/dL (2.3-3.5) H 09/21/19 04:14 Albumin/Globulin Ratio 0.7 (1.1-1.8) L 09/21/19 04:14 Lipase 81 U/L (73-393) 09/21/19 04:14 Procalcitonin 0.51 ng/mL (<0.50) H 09/21/19 04:14 Urine pH 8.5 (5.0-7.0) H 09/21/19 03:20 Ur Specific [place] 1.020 (1.005-1.030) 09/21/19 03:20 Glucose (UA)(Auto) Negative (NEG) 09/21/19 03:20 Urine Ketones Negative (NEG) 09/21/19 03:20 Urine Blood Negative (NEG) 09/21/19 03:20 Urine Nitrite Negative (NEG) 09/21/19 03:20 Ur Leukocyte Esterase Negative (NEG) 09/21/19 03:20 Urine Total Protein Negative (NEG) 09/21/19 03:20 Urine Test Neg (NEG) 09/21/19 03:20 Microbiology Data (last 24 hrs): 09/21/19 03:12 Clean Catch Urine [place] Count - Final BETWEEN 10,000 & 100,000 CFU/ML 09/21/19 03:12 Clean Catch Urine - Final Escherichia Coli Medications List Reviewed: Yes Assessment & Plan - Problems (Diagnosis) (1) Polysubstance abuse Current Visit: Yes Status: Acute (2) Pyelonephritis Current Visit: Yes Status: Acute (3) Tachyarrhythmia Current Visit: Yes Status: Acute Physician Review Additional Text: Continue with current plan of care as mentioned below 1. Continue with IV hydration; will give IV fluid boluses; monitor her cardiac status closely-heart rate has been elevated. 2. Continue with IV antibiotics 3. Continue with pain control 4. Start clear liquid diet and advance as tolerated 5. Monitor labs closely 6. Await urine culture results 7. Advised patient to get out of bed and ambulate a little bit. Anticipate discharge over the next 24-48 hours. 8. GI and DVT prophylaxis 09/23/2019 Pain controlled well Leukocytosis trending down Renal parameters monitored Hypokalemia resolved CT findings noted with possible pyelonephritis and possible mass will get an ultrasound of the abdomen Continue antibiotics Urine culture positive for E. coli Advice ambulation Advice about substance abuse cessation Possible Dc in a.m. Time Spent Managing Pts Care (In Minutes): 35
[2019-09-24] MEDS: HYDROMORPHONE HCL 1 MG/ML INJ IV PRN ×2 (00:45→08:36)
[2019-09-24 06:31] LABS: BUN Blood Urea Nitrogen 8 mg/dL (7-18); Bicarbonate 32 mmol/L (21-32); Glucose Level 86 mg/dL (74-106); Potassium 3.8 mmol/L (3.5-5.1); Sodium Level 141 mmol/L (136-145)
[2019-09-24 07:02] LABS: Absolute Lymphocytes (CBC) 2.3 K/uL (0.7-4.9); Basophils % 0.9 % (0-1.3); Hematocrit 28.6 % (36.0-45.0); MPV 7.7 fL (7.6-11.3); RBC Red Blood Cell Count 3.53 M/uL (3.86-4.86)
[2019-09-24] MEDS: MUPIROCIN 2% OINT 22GM TUBE TOP SCH (08:37)
[2019-09-24] MEDS: ENOXAPARIN 40 MG/0.4 ML SQ SCH (08:37)
[2019-09-24] MEDS: CEFTRIAXONE/SWI 1gm 1 GM/10 ML SYR IVP SCH (08:37)
--- NOTE | 2019-09-24 08:39 | RAD REPORT ---
EXAM DESCRIPTION: US - Abdomen Exam Complete - 09/24/2019 7:50 am CLINICAL HISTORY: Abdominal pain. Abnormal CT finding COMPARISON: Abdomen Exam Limited dated 12/16/2016; Stone Protocol dated 09/21/2019 FINDINGS: The liver is normal in size, shape and echotexture. Echogenic 2.6 x 2.0 cm mass in the inf erior right lobe of the liver likely represents a hemangioma. No biliary dilatation. The gallbladder demonstrates no gallstones, pericholecystic fluid or gallbladder wall thickening. Co mmon bile duct is normal in caliber measuring 3 mm. Both kidneys are normal in size, shape and echotexture. No hydronephrosis, focal lesion of concern or perinephric fluid. The spleen is normal in size measuring 12 cm. The pancreas and aorta are obscured by bowel gas. The visualized aspects of the IVC are grossly normal. IMPRESSION: 2.6 x 2.0 cm hemangioma suspected inferior right lobe of the liver.
[2019-09-24] MEDS ORDERED: POTASSIUM CL SA 10 MEQ TAB PO ONE (09:00)
[2019-09-24 12:00] VITALS: O2SAT 100
[2019-09-24] MEDS: HYDROCODONE/APAP 7.5/325 MG TAB PO PRN (13:10)
[2019-09-24] MEDS: NA CHLORIDE 0.9% 1,000 ML IV SCH (14:00)
[2019-09-24 14:37] VITALS: BP 106/67; TEMP 97.9
--- NOTE | 2019-09-25 00:05 | DS ---
Date of Discharge: 09/24/2019 Admitting Diagnoses: 1.Acute pyelonephritis. 2.Hypokalemia. 3.Systemic inflammatory response syndrome. Discharge Diagnoses: 1.Systemic inflammatory response syndrome. Patient has fever of 103.2, heart rate 133, elevated pro calcitonin level. Source of infection is pyelonephritis. 2.Acute pyelonephritis. 3.Polysubstance abuse. 4.Hypokalemia. 5.Liver hemangioma. Patient is aware of this hemangioma from the past. Needs to follow up with hep atologist. Hospital Course: Patient is a 34-year-old female with no significant past medical history who comes in with right-sided flank pain. Patient had a positive UA. She was started on IV antibiotics. Her UA was negative, however, thought to have pyelonephritis as evidenced by CT scan. Her UDS was positi ve for amphetamines and benzodiazepines. Patient was counseled. CT scan did not show any hydronephr osis or mass, did show some punctate right nephrolithiasis. Patient was also found to have a hypoden se lesion in the inferior right hepatic lobe 1.9 cm. Ultrasound was done which showed hemangioma. T his hemangioma has been stable since 2012, seen on CAT scan. At that time, patient was aware of this diagnosis. Recommended to see vice president of sales for possible embolization, however, chances this hemangi babs bleeding are low. Patient's white blood cell count improved. She remained afebrile after the in itial treatment was initiated. Her white blood cell count normalized. There was no other signs of s epsis. Her procalcitonin normalized. Lactate was also normal. Her urine culture grew out E coli wh ich was sensitive to essentially pansensitive except to ampicillin and Unasyn. Blood cultures did no t show any growth to date. Patient was feeling significantly better. She was able to hydrate and to lerate her diet. She did have some mild pain in her right flank, however, is improved significantly. Patient was then cleared for discharge and was sent home in a stable condition. Activity: As tolerated. Medications: As per medication reconciliation list. Followup: Follow up with primary care physician in 2-3 days. Establish care with vice president of sales in 4 weeks to monitor hemangioma. Establish care with urologist in 2-4 weeks for possible cystoscopy. Bernabe childress has had multiple UTIs and has kidney stones. Return to ER for worsening condition. Diet: Regular. Activity: As tolerated. Physical Examination: General: Awake, alert, oriented x3. No acute distress. CV: S1, S2. Respiratory: Moving air well bilaterally. Abdomen: Soft, nontender, nondistended. Positive bowel sounds. Minimal right flank tenderness. Extremities: No clubbing, cyanosis, or edema. Neurologic: Nonfocal. Total time spent discharging patient was 34 minutes. /DENILSON Voice ID: [id number] Report ID: [id number]
== END 2019-09-24 15:41 | disposition home or self-care (01) | DRG 690 ==
LOC: ER 01:45 → ERHOLD 06:51 → 2ND 14:10
PROVIDERS: ADMIT Hospitalist; ATTEND Family Medicine
DX: N10 Acute pyelonephritis (principal); F19.10 Other psychoactive substance abuse, uncomplicated; R00.0 Tachycardia, unspecified; D72.829 Elevated white blood cell count, unspecified; E87.6 Hypokalemia; B96.20 Unspecified Escherichia coli [E. coli] as the cause of diseases classified elsewhere; D18.09 Hemangioma of other sites; Z88.5 Allergy status to narcotic agent; Z90.49 Acquired absence of other specified parts of digestive tract
CPT/HCPCS: 36415; 71045; 74176; 76377; 76700; 80048; 80053; 80076; 80307; 81003; 81025; 83605; 83690; 83735; 84100; 84132; 84145; 85025; 85610; 85730; 87040; 87077; 87086; 87088; 87186; 96374; 96375; 99285; J0696; J1170; J1650; J1720; J2405; J3010; J7030; J7040

== ENCOUNTER 2020-07-22 03:48 | Inpatient (IN) | payer OTHER ==
[2020-07-22] MEDS ORDERED: LIDOCAINE 1% MPF 2 ML AMPULE ONE (04:19)
[2020-07-22] MEDS ORDERED: METHYLERGONOVINE 0.2MG/ML AMP IM ONE (04:20)
[2020-07-22] MEDS ORDERED: LIDOCAINE 1% MPF 30 ML VIAL ONE (04:20)
[2020-07-22] MEDS ORDERED: CARBOPROST TROME 250 MCG/ML IM ONE (04:20)
[2020-07-22] MEDS ORDERED: OXYTOCIN/LR 20 UNIT/1,000 ML BAG IV ONE (04:20)
--- OUTSIDE RECORDS SUMMARY | 2020-07-22 04:28 | XMS REPORT | Continuity of Care Document ---
:1985 Author Organization [facility] t Address [address] [place] [address] Care Team Providers Name Role Phone Lab, Fam Pob I Attending Clinician Unavailable Problems This patient has no known problems. Allergies, Adverse Reactions, Alerts This patient has no known allergies or adverse reactions. Medications This patient has no known medications. Procedures This patient has no known procedures. Encounters Start End Encounter Admission Attending Care Care Encounter Source Date/Time Date/Time Type Type Clinicians Facility Department ID 2020-03-20 2020-03-20 Laboratory Lab, [facility] [id number] 13:55:24 14:15:24 Only Fam Pob I [facility] [id number] Transfer [id number] Professio [phone] [address] Results This patient has no known results.
[2020-07-22] MEDS ORDERED: IBUPROFEN 200 MG TAB PO PRN (04:29)
[2020-07-22] MEDS ORDERED: DOCUSATE NA/SENNA CONC 1 TAB PO PRN (04:29)
[2020-07-22] MEDS ORDERED: DIPHENHYDRAMINE 25 MG TAB/CAP PO PRN (04:29)
[2020-07-22] MEDS ORDERED: ACETAMINOPHEN 500 MG TAB PO PRN (04:29)
[2020-07-22] MEDS ORDERED: Oxycodone HCl/Acetaminophen 1 TAB TAB PO PRN ×2 (04:29)
[2020-07-22] MEDS ORDERED: BISACODYL 10 MG RECTAL SUPP RC PRN (04:29)
[2020-07-22] MEDS ORDERED: Ringers Lactate 1,000 ML IV PRN (04:43)
[2020-07-22] MEDS ORDERED: PENICILLIN 5 MU in NA CHLORIDE 0.9% 100 ML IV ONE (04:43)
[2020-07-22] MEDS ORDERED: OXYTOCIN/LR 20 UNIT/1,000 ML BAG IV SCH ×2 (05:00)
[2020-07-22] MEDS ORDERED: Ringers Lactate 1,000 ML IV SCH (05:00)
--- NOTE | 2020-07-22 05:07 | OP ---
Surgeon: Tian Estevez MD Procedure In Detail: This is a 35-year-old, 6, para 5, according to her she is 36 weeks. No care. She says she is too afraid of COVID to go to any office visits. No history of any t ype of problem with her other pregnancies other than she said with her fourth she had preec lampsia. Brought in by EMS, 9 cm bulging membranes. When I arrived the patient was complete rupture of membranes, very light meconium staining. She was prepped and draped with 1 basic push she delive red a 6.5 to 7 pounds male , Apgars 9 and 9. No suspicion of meconium aspiration. No episioto my. No laceration. Schultze delivery of the placenta. Estimated blood loss less than 300 cc. Peni cillin prophylaxis was started as patient was looked at 36 weeks with unknown strep status and reques doug prophylaxis. Although, has been less than an hour since it was started. Tolerated all procedure s well. Diagnoses: Intrauterine gestation, no care, 36-38 weeks estimate. Spontaneous vaginal deli very. Labs pending. NBC/MODL Voice ID: [id number] Report ID: [id number]
--- NOTE | 2020-07-22 05:13 | HP ---
Date of Admission: 07/22/2020 History Of Present Illness: A 35-year-old, 6, para 5, no care. She says she was af raid of COVID, did not want to come out of her house. Family History: Noncontributory. Past Medical History: Preeclampsia with a fourth . Allergies: NO ALLERGIES. Past Surgical History: The patient said her appendix removed. No other surgeries. Medications: She has been taking vitamins, but no other medications. Physical Examination: HEENT: Clear. Pupils equal, round, reactive to light and accommodation. Conjunctivae well perfused . No oral, lingual, or buccal lesions. Chest: Lungs are clear. Heart: Without murmurs, Breasts: Not examined. Abdomen: Term size. Extremities: Clear without edema, cyanosis, or clubbing. Pelvic exam: The patient was complete, when I checked her rupture of membranes, light meconium. Assessment/plan: Delivery anticipated momentarily. Penicillin prophylaxis had been started at her r equest. ABDULLAHI/DENILSON Voice ID: [id number]
[2020-07-22 05:32] LABS: Absolute Lymphocytes (CBC) 1.3 K/uL (0.7-4.9); Basophils % 0.1 % (0-1.3); Hematocrit 32.9 % (36.0-45.0); Lymphocytes % 10.8 % (15.3-44.8); MPV 8.4 fL (7.6-11.3); RBC Red Blood Cell Count 4.19 M/uL (3.86-4.86)
[2020-07-22] MEDS ORDERED: LABETALOL 20 MG/4ML SYRINGE IV ONE ×2 (05:55→06:20)
[2020-07-22] MEDS ORDERED: PHENOBARBITAL 32.4 MG TABLET PO ONE (06:28)
[2020-07-22 06:56] VITALS: BMI 30.7
--- NOTE | 2020-07-22 08:22 | PN ---
After delivery it was noted the patient's blood pressures were elevated. Catheterized urine specimen showed protein in the urine. She has a history of preeclampsia. We started on phenobarbital. She has no [employer] symptoms. She was given 1 dose of labetalol when the systolic blood pressure exceeded 165 . Blood pressures now less than 160 systolic. She has chronic hypertension in the family. The darren ent probably has the same thing at this point and was superimposed preeclampsia-mild. This was discu ssed with the patient this morning. I gave her a prescription that she will take home when she is di smissed tomorrow for phenobarbital for another 4 days. She knows this goes through the breast milk a nd knows to watch the baby. She is Rh positive, therefore will not need RhoGAM. She has been offere d a Tdap shot, which she will accept and a flu shot which she has declined. We will see if she is im mune to rubella, if not, give her immunization for that also. Full talk given. She knows she can call my office today and make an appointment to come see me next Sunday. We want to watch h er blood pressures carefully in the . She knows to report any fever of 100 degrees, severe pain, heavy bleeding, or any other type of abnormalities. She is obviously mature at 35 and has 5 c hildren, so she knows what to look for and what to do. She expressed desire for control. She is thinking about control pills. I suggested possibly marine oil terminal superintendent IUD such as ParaGard. Permane nt sterilization was also discussed, but of course she has not signed the permit and by the time, she would be eligible. According to the permit her Medicaid will try to be lapsed, but she can discuss this with [facility] if she wishes. Doing well at this point. She will be dismissed by the on-call physic paul tomorrow. ABDULLAHI/MODL Voice ID: [id number] Report ID: [id number]
[2020-07-22] MEDS: PHENOBARBITAL 32.4 MG TABLET PO SCH ×2 (12:15→18:09)
[2020-07-22 15:41] LABS: Urine Appearance CLEAR; Urine Bilirubin NEGATIVE (NEG); Urine Blood 2+ (NEG); Urine Color YELLOW; Urine Glucose NEGATIVE (Negative); Urine Protein 1+ (NEG); Urine Specific Gravity <=1.005 (1.005-1.030); Urine Urobilinogen 0.2 mg/dL (0.2-1.0)
[2020-07-22 17:00] LABS: Urine Amorphous Sediment TRACE /HPF (NONE SEEN); Urine Bacteria <20 /HPF (<20)
[2020-07-22 22:01] LABS: RPR (Rapid Plasma Reagin) NON-REACT (NON-REACT)
[2020-07-23] MEDS: PHENOBARBITAL 32.4 MG TABLET PO SCH ×2 (00:15→06:15)
--- NOTE | 2020-07-23 07:40 | P.PN ---
Subjective Date of Service: 07/23/20 Primary Care Provider: Inna Riddle Chief Complaint: PPD 1 Subjective: No new changes, Tolerating diet Review of Systems General: Unremarkable Cardiovascular: Unremarkable Gastrointestinal: Unremarkable Genitourinary: Unremarkable Musculoskeletal: Unremarkable Neurological: Unremarkable Physical Examination - Vital Signs Temperature: 97.6 F Blood Pressure: 150/87 Pulse: 88 Respirations: 18 - Physical Exam General: Alert, In no apparent distress Cardiovascular: Regular rate/rhythm Gastrointestinal: Soft and benign Neurological: Normal reflexes 2+, Normal affect Other Physical/Emotional Findings: Fundus firm, below umbilicus Assessment And Plan - Current Problems (Diagnosis) (1) Hypertension affecting , delivered, current hospitalization Current Visit: Yes Status: Chronic - Plan Patient states she has a history of Pre-E with previous and has BP issues that predated any . Family history significant for HTN/CAD. Not currently on any medications. She received no care this due to concerns about COVID. She is asymptomatic at this time and exam is normal. However, she has a history of what sounds like chronic hypertension. Her BPs have been labile this hospitalization, and would benefit from starting on a low dose hypertensive medication. I will start on medications when labs return this AM. UDS to be collected due to no care this . Bottle Feeding Rh +
[2020-07-23 08:13] LABS: Absolute Lymphocytes (CBC) 2.6 K/uL (0.7-4.9); Basophils % 0.4 % (0-1.3); Hematocrit 31.6 % (36.0-45.0); Lymphocytes % 18.1 % (15.3-44.8); MPV 7.8 fL (7.6-11.3); RBC Red Blood Cell Count 4.01 M/uL (3.86-4.86)
[2020-07-23 08:19] LABS: ALT/SGPT 14 U/L (12-78); AST/SGOT 23 U/L (15-37); Albumin 1.8 g/dL (3.4-5.0); Alkaline Phosphatase 150 U/L (45-117); BUN Blood Urea Nitrogen 11 mg/dL (7-18); Bicarbonate 30 mmol/L (21-32); Bilirubin Total 0.1 mg/dL (0.2-1.0); Glucose Level 74 mg/dL (74-106); Potassium 4.2 mmol/L (3.5-5.1); Protein, Total 5.7 g/dL (6.4-8.2); Sodium Level 140 mmol/L (136-145)
[2020-07-23 09:03] LABS: Urine Appearance CLEAR; Urine Bilirubin NEGATIVE (NEG); Urine Blood 3+ (Negative); Urine Color YELLOW; Urine Glucose NEGATIVE (Negative); Urine Protein NEGATIVE (NEG); Urine Specific Gravity <=1.005 (1.005-1.030); Urine Urobilinogen 0.2 mg/dL (0.2-1.0); Urine pH 7.5 (5.0-7.0)
[2020-07-23 09:17] LABS: Urine Bacteria NONE SEEN /HPF (<20); Urine RBC >50 /HPF (NONE SEEN)
[2020-07-23 09:51] LABS: Blood Morphology Comment NOTED (NOT SEEN); Platelet Estimate ADEQ; Polychromasia 1+
[2020-07-23 10:07] LABS: Barbiturates POSITIVE (NEGATIVE); Benzodiazepines POSITIVE (NEGATIVE); Cocaine NEGATIVE (NEGATIVE); METHAMPHETAM NEGATIVE (NEGATIVE); Methadone NEGATIVE (NEGATIVE); Opiates NEGATIVE (NEGATIVE); Phencyclidine NEGATIVE (NEGATIVE); THC Cannibis NEGATIVE (NEGATIVE)
[2020-07-23 10:17] LABS: Urine Protein/Creatinine Ratio 0.56 ratio (<0.15)
[2020-07-23] MEDS ORDERED: LABETALOL HCL 100 MG TAB PO ONE (10:23)
--- NOTE | 2020-07-23 10:23 | P.PN ---
Date of Service: 07/23/20 Patient had BP of 168/97 then 155/100 while in left lateral position. Asymptomatic otherwise. UDS positive for barbituates and benzos, but she is on phenobarbital as per Dr. Estevez. No history of asthma. No contraindications to labetalol. Will start 200mg PO BID and recheck BP this afternoon. She strongly desires to discharge home today. If BPs non severe, I will discharge her with the Rx and follow up with Dr. Estevez in 1 week. Her P:C ratio was 0.56, consistent with the diagnosis of chronic hypertension with superimposed pre-eclampsia. At this time, no signs of symptoms of severe features so will hold on Magnesium. If recheck BP is in severe range, further management would be indicated She is aware that she needs to also establish with a PCP due to increased risk for her based on chronic hypertension and Pre-E now with 2 pregnancies.
[2020-07-23] MEDS ORDERED: LABETALOL HCL 100 MG TAB ONE (10:43)
[2020-07-23 12:22] VITALS: TEMP 96.7
[2020-07-23 12:42] VITALS: BP 158/85
[2020-07-23] MEDS ORDERED: Tdap (Diph,Pertuss(Acell),Tet Vac) 0.5 ML SYR IMVAC ONE (13:20)
[2020-07-23] MEDS ORDERED: LABETALOL HCL 100 MG TAB PO SCH (21:00)
[2020-07-25 18:53] LABS: HBsAG Nonreactive (Nonreactive)
--- NOTE | 2020-07-26 06:06 | P.DS ---
Admission Date: 07/22/20 Discharge Date: 07/23/20 Primary Care Provider: Inna Riddel Reason for Admission: PPD 1 - Problems (1) Hypertension affecting , delivered, current hospitalization Status: Chronic Hospital Course: Patient was admitted for labor. She had no care this . On PPD 1, she had BPs that fluctuated from 140s-170s/70s-100. She was asymptomatic. Labs were WNL. UDS was collected, and she was started on PO labetalol 200mg BID. She tolerated the first dose well. After monitoring for a few hours, she was up moving around the room without any issues and repeat BP was non severe upon discharge. She was made aware that she has chronic hypertension with superimposed pre-eclampsia for a second and that this increases her health risks in the [place]. She agrees to follow up with Dr. Estevez this upcoming week and will get re-established with her PCP as well since she understands that she will likely require nursing home anti-hypertensive medication. She was on lisinopril in the past. She strongly desires discharge home. We reviewed signs/symptoms of severe pre-eclampsia, for which she agrees to return back to the hospital should she experience any of them or any other concerns upon discharge. Vital Signs/Physical Exam: Temp Pulse Resp BP Pulse Ox 96.7 F L 107 H 18 158/85 H 07/23/20 12:14 07/23/20 12:15 07/23/20 12:15 07/23/20 12:15 General: Alert, In no apparent distress Respiratory: Normal air movement Cardiovascular: Normal pulses Gastrointestinal: Normal bowel sounds Musculoskeletal: No erythema, No tenderness Neurological: Normal reflexes 2+ Other Physical/Emotional Findings: Fundus firm, below umbilicus Laboratory Data at Discharge: WBC 14.60 K/uL (4.3-10.9) H D 07/23/20 07:39 Hgb 10.0 g/dL (12.0-15.0) L 07/23/20 07:39 Hct 31.6 % (36.0-45.0) L 07/23/20 07:39 Plt Count 362 K/uL (152-406) 07/23/20 07:39 Sodium 140 mmol/L (136-145) 07/23/20 07:39 Potassium 4.2 mmol/L (3.5-5.1) 07/23/20 07:39 BUN 11 mg/dL (7-18) 07/23/20 07:39 Creatinine 0.59 mg/dL (0.55-1.3) 07/23/20 07:39 Glucose 74 mg/dL (74-106) 07/23/20 07:39 Total Bilirubin 0.1 mg/dL (0.2-1.0) L 07/23/20 07:39 AST 23 U/L (15-37) 07/23/20 07:39 ALT 14 U/L (12-78) 07/23/20 07:39 Alkaline Phosphatase 150 U/L (45-117) H 07/23/20 07:39 Home Medications: Labetalol HCl [Trandate] 200 mg PO BID #60 tablet 07/23/20 PHENobarbitaL [Phenobarbital] 60 mg PO Q6HR #16 tablet 07/23/20 New Medications: PHENobarbitaL [Phenobarbital] 60 mg PO Q6HR #16 tablet Labetalol HCl [Trandate] 200 mg PO BID #60 tablet Physician Discharge Instructions: Discharge Diagnosis: Post- Vaginal Diet: Regular diet including increased fluids. Activity: No douching, intercourse, using tampons, exercise, heavy lifting or housework until seen by your physician at your post-operative visit. No driving for 2 weeks. Special Instructions: Continue to take vitamins until you have finished your supply. If , continue taking vitamins. Vaginal bleeding may continue for 4-6 weeks. Notify Your Doctor: If any problems with fever, chills, excessive vaginal bleeding, unusual vaginal discharge, or difficulty urinating. For any problems with swelling, purulent drainage, severe pain, bleeding or extreme redness of your incision notify your physician as well. IMMUNIZATION Tdap Vaccine Indicated:Yes Date Given: 07/23/20 Flu Vaccine Indicated: Yes Date Given: Refused Diet: Regular Activity: Ad emily Followup: Isai Estevez MD [ACTIVE - CAN ADMIT] - Time spent managing pt's care (in minutes): 30
== END 2020-07-23 13:50 | disposition home or self-care (01) | DRG 805 ==
LOC: L&D 03:48 → 2ND-WC 03:49
PROVIDERS: ADMIT Specialist; ATTEND Specialist
PROC: 10907ZC Drainage of Amniotic Fluid, Therapeutic from Products of Conception, Via Natural or Artificial Opening (ICD-10-PCS; principal; 2020-07-22)
PROC: 10E0XZZ Delivery of Products of Conception, External Approach (ICD-10-PCS; 2020-07-22)
DX: O10.92 Unspecified pre-existing hypertension complicating childbirth (principal); O60.14X0 Preterm labor third trimester with preterm delivery third trimester, not applicable or unspecified; Z37.0 Single live birth; O11.4 Pre-existing hypertension with pre-eclampsia, complicating childbirth; O99.824 Streptococcus B carrier state complicating childbirth; Z3A.36 36 weeks gestation of pregnancy; F13.90 Sedative, hypnotic, or anxiolytic use, unspecified, uncomplicated; F19.90 Other psychoactive substance use, unspecified, uncomplicated; Z23 Encounter for immunization; Z20.822 Contact with and (suspected) exposure to COVID-19
CPT/HCPCS: 36415; 80053; 80307; 81001; 82570; 84156; 85025; 86592; 86850; 86900; 86901; 87340; 90715; J2001; J2210; J2540; J2590; J7120; U0003

== ENCOUNTER 2020-11-22 13:18 | Emergency (ER) | payer OTHER ==
[2020-11-22] MEDS ORDERED: EPINEPHrine 1 MG/10 ML SYR IV ONE (13:19)
[2020-11-22] MEDS ORDERED: NALOXONE HCL 2 MG/2 ML VIAL IM ONE (13:19)
--- OUTSIDE RECORDS SUMMARY | 2020-11-22 13:21 | XMS REPORT | Continuity of Care Document ---
:[address] [facility] t Address [address] [place] [address] Care Team Providers Name Role Phone Lab, Preston Guillermo I Attending Clinician Unavailable Problems This patient has no known problems. Allergies, Adverse Reactions, Alerts This patient has no known allergies or adverse reactions. Medications This patient has no known medications. Procedures This patient has no known procedures. Encounters Start End Encounter Admission Attending Care Care Encounter Source Date/Time Date/Time Type Type Clinicians Facility Department ID 2020-03-20 2020-03-20 Laboratory Lab, [facility] [id number] 13:55:24 14:15:24 Only Preston Pob I [facility] [id number] [place] [id number] [facility] [phone] [address] Results This patient has no known results.
--- NOTE | 2020-11-23 17:23 | ER ---
Nurse's Notes [facility] Name: Marcella Argueta Age: 35 yrs Sex: Female : 1985 Arrival Date: 11/22/2020 Time: 13:27 Bed 4 Private MD: Diagnosis: Cardiac arrest, cause unspecified Presentation: 11/22 13:15 Chief complaint: EMS states: Pt found down on floor, naked in front of AC by a friend ph who went to check on her. Pt cold to touch, rhythm asystole,unknown down time .Friend stated to EMS that pt is a known meth user, IV established to LAC, Narcan 2mg given IN, 2 mg Narcan given IVP, 3 rounds of epi also given, last one at 1312. #3 Delroy tube placed for airway, auto pulse in place upon arrival to ED. Initial call for EMS assistance received at 1244. Coronavirus screen: At this time, the client does not indicate any symptoms associated with coronavirus-19. Ebola Screen: No symptoms or risks identified at this time. Initial Sepsis Screen: Does the patient meet any 2 criteria? Yes Does the patient have a suspected source of infection? No. Patient's initial sepsis screen is negative. Risk Assessment: Do you want to hurt yourself or someone else? Patient reports no desire to harm self or others. Onset of symptoms was November 22, 2020. 13:15 Method Of Arrival: EMS: [facility] [place] 13:15 Acuity: COLIN 1 ph Historical: - Allergies: 13:36 tramadol; ph - PMHx: 13:36 Anxiety; chronic neck pain; Chronic pain; Endometrosis; Hypertension; ph - Immunization history:: Adult Immunizations unknown. - Social history:: Smoking status: unknown. - Unable to obtain history due to: comatose state, unresponsive. Assessment: 13:15 Cardiovascular: Rhythm is asystole. ph 13:19 Reassessment: Compressions paused for pulse check. Cardiovascular: Rhythm is asystole. ph 13:23 Reassessment: Compressions paused for pulse check, asystole on monitor, Dr Daugherty at bedside w/ US, no cardiac activity detected, time of called at 1323. Vital Signs: 13:15 Temp 89.3(R); ph ED Course: 13:16 Assisted provider with intubation using 7.5 mm ETT via oral route. ET tube secured at ph 23cm at the lips. Set up intubation tray. Intubated by Satinder Daugherty MD Placement verified by CO2 detector w/ + color change, auscultating bilateral breath sounds. 13:23 Inserted saline lock: 20 gauge in left forearm, using aseptic technique. ph 13:27 Patient arrived in ED. em1 13:27 Satinder Daugherty MD is Attending Physician. rn 13:36 Triage completed. ph 13:41 Kayley Wilde, MAIRA is Primary Nurse. jl7 13:50 Satinder Daugherty MD is Pronouncing Provider. rn Administered Medications: 13:17 Drug: NARcan (naloxone) 2 mg Route: IVP; Site: left antecubital; ph 13:18 Follow up: Response: No change in condition jl7 13:18 Drug: NARcan (naloxone) 2 mg Route: IVP; Site: left antecubital; ph 13:19 Follow up: Response: No change in condition jl7 13:18 Drug: EPINEPHrine 0.1mg/mL 1:10,000 1 mg Route: IVP; Site: left antecubital; ph 13:19 Follow up: Response: No change in condition jl7 Outcome: 14:48 Patient : Time of 13:23 Pronounced by Satinder Daugherty MD Body released to MT jl7 14:48 Condition: jl7 14:50 Patient left the ED. aa5 Signatures: Satinder Daugherty MD MD rn Martinez, Eric em1 Lakisha Zheng RN RN aa5 Karin Diaz RN RN Kayley Wilde RN RN jl7 Corrections: (The following items were deleted from the chart) 14:52 14:51 Patient left the ED. aa5 aa5
--- NOTE | 2020-11-23 17:23 | EDPHYS ---
Physician Documentation [facility] Name: Marcella Argueta Age: 35 yrs Sex: Female : 1985 Arrival Date: 11/22/2020 Time: 13:27 Bed 4 Private MD: ED Physician Satinder Daugherty HPI: 11/22 13:45 This 35 yrs old Female presents to ER via EMS with complaints of CPR. rn 13:45 Preceding the arrest, the patient was found down. The arrest occurred at home. rn Pre-hospital course: The arrest was not witnessed by others. Bystanders at the scene performed CPR. EMS care prior to arrival: initiation of ACLS, EMS call time was 12:44. ACLS details: Initial rhythm was asystole. The presenting rhythm is asystole. Airway: Delroy tube, Medications given by EMS prior to arrival - Epinephrine IV x 3 doses, Response to therapy: continued arrest. It is unknown whether or not the patient has had similar symptoms in the past. Per EMS, patient found down and unresponsive naked in front of AC at home, bystanders report history of drug use but no other known information. 4 mg of Narcan administered prior to arrival and glucose was normal. Initial rhythm asystole and no improvement after Delroy tube placement and Narcan.. Historical: - Allergies: 13:36 tramadol; ph - PMHx: 13:36 Anxiety; chronic neck pain; Chronic pain; Endometrosis; Hypertension; ph - Immunization history:: Adult Immunizations unknown. - Social history:: Smoking status: unknown. - Unable to obtain history due to: comatose state, unresponsive. ROS: 13:45 Unable to obtain ROS due to comatose state. rn Exam: 13:45 Constitutional: Thin female, GCS 3, no spontaneous activity, has a Delroy tube in place rn Head/Face: Normocephalic, atraumatic. Eyes: Pupils dilated and fixed ENT: Blood in Delroy tube noted Neck: No neck swelling or crepitus Chest/axilla: No chest lesions or crepitus noted Cardiovascular: No spontaneous activity Respiratory: No spontaneous breaths Abdomen/GI: Soft nondistended Skin: Warm, dry MS/ Extremity: No spontaneous pulses, positive perioral cyanosis and cool extremities Neuro: GCS 3 Vital Signs: 13:15 Temp 89.3(R); ph Procedures: 13:49 Ultrasound: Type: Fast exam, OB, performed by the emergency department physician, FAST rn exam negative, no evidence of , no cardiac activity noted. 13:51 CPR: See CPR flow sheet. Initial patient assessment: unresponsive, pulses present w/ rn compressions, The presenting cardiac rhythm is asystole. Delroy tube, Compressions: began prior to arrival. Meds given: See Meds list. despite ED evaluation and treatment, the patient . CPR was stopped at 13:23. Intubation: Ventilated with 100% NRB prior to procedure. O2 saturation prior to procedure was 74 %. Intubated orally using # 4 Erik blade with 7.5 mm ETT. was successful on first attempt. Cricoid pressure applied during procedure. Tube secured with ETT cummins at right side of mouth measured 23 cm at teeth. Placement verified by auscultating bilateral breath sounds, O2 saturation after procedure was 98 %. Patient tolerated well. MDM: 13:27 Patient medically screened. rn 13:49 Differential diagnosis: arrythmia, cardiac arrest, respiratory arrest, overdose. Data rn reviewed: vital signs, nurses notes, radiologic studies, ultrasound. 13:49 Counseling: I had a detailed discussion with the patient and/or guardian regarding: the rn historical points, exam findings, and any diagnostic results supporting the discharge/admit diagnosis, radiology results. Response to treatment: There is no appreciated change of the patient's symptoms at this time. 14:06 ED course: [id number] here, states she was told by person who found the patient rn unresponsive that last seen or spoken to about 11 PM last night, attempted to contact her around 2 in the morning was unsuccessful, then went in person to find her unresponsive this afternoon. [id number] states history of drug use with meth and other unknown pills.. 11/22 13:39 Order name: Glucose, Ancillary Testing EDMS Administered Medications: 13:17 Drug: NARcan (naloxone) 2 mg Route: IVP; Site: left antecubital; ph 13:18 Follow up: Response: No change in condition jl7 13:18 Drug: NARcan (naloxone) 2 mg Route: IVP; Site: left antecubital; ph 13:19 Follow up: Response: No change in condition jl7 13:18 Drug: EPINEPHrine 0.1mg/mL 1:10,000 1 mg Route: IVP; Site: left antecubital; ph 13:19 Follow up: Response: No change in condition jl7 Disposition Summary: 11/22/20 13:51 Patient Location: [facility] rn Pronouncing Physician: Satinder Daugherty rn Time of : 13:23 11/22/2020 rn Diagnosis - Cardiac arrest, cause unspecified rn Signatures: Dispatcher [employer] EDMS Satinder Daugherty MD MD rn Hall, Patricia, RN RN [facility] jl7
== END 2020-11-22 14:51 ==
LOC: ER 13:18
PROC: 0BH17EZ Insertion of Endotracheal Airway into Trachea, Via Natural or Artificial Opening (ICD-10-PCS; principal; 2020-11-22)
PROC: 5A12012 Performance of Cardiac Output, Single, Manual (ICD-10-PCS; 2020-11-22)
DX: I46.9 Cardiac arrest, cause unspecified (principal); I10 Essential (primary) hypertension; Z88.5 Allergy status to narcotic agent
CPT/HCPCS: 82947; 31500; 92950; J2310; J0171